=== PATIENT | female | born 1970 | race Caucasian/White ===

== ENCOUNTER 2018-10-18 07:04 | Emergency (ER) | payer SELFPAY ==
[~2018-10-18] VITALS: Ht 167.6 cm; Wt 129.3 kg
[2018-10-18 07:11] VITALS: Ht 167.6 cm; Wt 129.3 kg
[2018-10-18] MEDS ORDERED: [UNRECOGNIZED DRUG - OTHER] (07:13)
[2018-10-18] MEDS ORDERED: METFORMIN HCL500 M1 PO (07:14)
[2018-10-18] MEDS ORDERED: K-DUR20 MEQ PO (07:14)
[2018-10-18] MEDS ORDERED: ACETAMINOPHEN500 M1 PO (08:30)
[2018-10-18] MEDS ORDERED: CYCLOBENZAPRINE10 MG PO (08:30)
[2018-10-18 08:54] VITALS: BP 132/80
== END 2018-10-18 08:52 | disposition home or self-care (01) ==
LOC: D.ER 07:04
DX: S93.502A Unspecified sprain of left great toe, initial encounter (principal); X50.1XXA Overexertion from prolonged static or awkward postures, initial encounter; Y93.89 Activity, other specified; Y92.89 Other specified places as the place of occurrence of the external cause

== ENCOUNTER → 2019-06-13 17:34 | Outpatient (CLI) | payer BC ==
[~2019-06-13 17:34] MED LIST: ACETAMINOPHEN500 M1 PO; CYCLOBENZAPRINE10 MG PO; K-DUR20 MEQ PO; METFORMIN HCL500 M1 PO; [UNRECOGNIZED DRUG - OTHER]
== END | disposition home or self-care (01) ==
LOC: D.LABREF 17:34
PROVIDERS: ATTEND Urology
DX: R31.9 Hematuria, unspecified (principal)

== ENCOUNTER 2019-06-22 06:47 | Day surgery (SDC) | payer BC ==
[~2019-06-22] VITALS: Ht 167.6 cm; Wt 122.0 kg
[~2019-06-22 06:47] MED LIST changes: +NATAZIA 28 TAB1 EACH PO; +VITAMIN D10000 UNI1 PO
[2019-06-22 07:22] LABS: HEMATOCRIT 45.4 % (36.0-48.0); HEMOGLOBIN 15.5 g/dL (12-16); MCH 31.3 pg (26.0-34.0); MCHC 34.1 g/dL (31.0-37.0); MCV 91.7 fL (80.0-100.0); MEAN PLATELET VOLUME 10.1 fL (7.4-10.4); RBC 4.95 10x6/uL (4.00-5.40); RDW 13.4 % (11.5-14.5); WBC 10.4 10x3/uL (4.8-10.8)
[2019-06-22 07:25] LABS: CALC OSMOLALITY 278 mosm/kg (275-300); CARBON DIOXIDE 30.2 mmol/L (21.0-32.0); CHLORIDE - SERUM 102 mmol/L (98-107); CREATININE - SERUM 0.8 mg/dL (0.6-1.3); GLUCOSE 115 mg/dL (74-106); POTASSIUM - SERUM 3.3 mmol/L (3.5-5.1); SODIUM 139 mmol/L (136-145); UREA NITROGEN 13 mg/dL (7-18); eGFR NON AFRICAN AMERICAN 81 mL/min (90-120)
[2019-06-22 08:07] VITALS: Ht 167.6 cm; Wt 122.0 kg
--- NOTE | 2019-06-22 13:09 | NUR ---
1145-AMBULATED TO RESTROOM AND VOIDED WITHOUT COMPLICATIONS. VSS. REPORTS PAIN TO ABD AND VAGINAL AREA /. CONTINUE TO WAIT FOR TRAY FROM DIETARY. CL IN EASY REACH. SPOUSE AT BEDSIDE
--- NOTE | 2019-06-22 13:11 | NUR ---
1225-TOLERATED CRACKERS AND SPRITE. DENIES NAUSEA. VSS. ADMINISTERED NORCO 10/325MG 1 BY MOUTH FOR PAIN.
--- NOTE | 2019-06-22 13:14 | NUR ---
1240-REMOVED IV FROM LEFT ARM WITH CATH INTACT,DISPOSED INTO SHARPS,COVERED SITE WITH GUAZE,SECURED WITH MEDIPORE TAPE. REVIEWED POST OPERATIVE INSTRUCTIONS AND FOLLOW UP APPOINTMENT. VERBALIZED UNDERSTANDING.
--- NOTE | 2019-06-22 13:16 | NUR ---
1245-REPORTS DECREASE IN PAIN TO 5/10. ESCORTED OUT VIA W/C WITH SPOUSE AWAITING TO DRIVE HOME.
--- NOTE | 2019-06-22 13:19 | OP ---
PATIENT NAME: ANCA KHAN MEDICAL RECORD: [id number] :70 LOCATION:D.OPS ADMISSION DATE: SURGEON: GARRETT SALDAÑA MD DATE OF OPERATION: 06/22/2019 SURGEON: Garrett Saldaña MD ANESTHESIA: Gema Green CRNA DIAGNOSIS: Interstitial cystitis. PROCEDURES: Cystoscopy, hydrodistention of the bladder, and intravesical Rimso instillation. FINDINGS: Single ureteral orifices bilaterally with no bladder tumors. Diffusely inflamed bladder. The patient has a [place] grade II rectocele. BLOOD LOSS: Minimal. CLINICAL HISTORY: This is a 48-year-old female with a previous history of interstitial cystitis. Urine culture on 06/13/2019 shows less than 10,000 CFU per mL of gram-positive cocci. I have placed her on doxycycline empirically. She has a CT scan, which shows no kidney stones, diverticulosis without diverticulitis in the colon, and a previous hysterectomy. She is still continuing to complain of flank pain, dysuria, suprapubic pain going down into the vagina and the legs. There was increased frequency and nocturia. She comes now to have the interstitial cystitis, treated with intravesical Rimso and hydrodistention. SHE IS ALLERGIC TO NSAIDS, PENICILLIN, ROCEPHIN, TORADOL, TRAMADOL, CIPRO. She was given Levaquin 500 mg IV marketing operations consultant to the OR. DESCRIPTION OF PROCEDURE: The patient was given IV sedation. She was placed into lithotomy position. Cystoscopy was performed using a 17-Mohawk cystoscope with 30-degree lens. While I was inserting the cystoscope, I noticed that she does have obvious rectocele. The findings from the cystoscopy are as outlined above. The bladder was distended to 600 mL and the fluid was held in for about 2 minutes. The fluid was then drained through the cystoscope sheath and then the scope was removed. We then inserted a red rubber catheter and through the lumen of the red rubber catheter, 50 mL of Rimso solution was instilled into the bladder. The catheter was then removed, leaving the fluid in the bladder. The patient will hold the fluid in for 15 minutes and then void it out. I will see her in followup in 2 weeks' time. TRANSINT:[id number] Voice Confirmation ID: [id number] DOCUMENT ID: [id number] GARRETT SALDAÑA MD at 1319 CC: [id number] DICTATION DATE: 06/22/19 1112 PREP PERSON: 06/22/19 1258 [facility] [place] 06/22/19 [place] [id number] [place] [facility] [place] [address]
== END 2019-06-22 12:45 | disposition home or self-care (01) ==
LOC: D.OPS 06:47
PROVIDERS: Anesthesiology; ATTEND Urology
DX: N30.10 Interstitial cystitis (chronic) without hematuria (principal); N30.00 Acute cystitis without hematuria; E11.9 Type 2 diabetes mellitus without complications; Z79.84 Long term (current) use of oral hypoglycemic drugs; Z87.442 Personal history of urinary calculi

== ENCOUNTER → 2020-06-18 10:50 | Outpatient (CLI) | payer BC ==
[2020-05-09 18:44] VITALS: BMI 44.0
[~2020-06-18 10:50] MED LIST changes: +ADIPEX-P37.5 MG PO; +ALBUTEROL2.5 MG/3 M INH; +AZITHROMYCIN500 MG PO; +DECADRON4 MG PO; +FEXOFENADINE HC60 MG PO; +FLORAJEN3 CAPS460 MG PO; +FLUTICASONE PRO16 GM NASAL; +GLUCOPHAGE500 MG PO; +MELATONIN 3 MG1 TAB PO; +MUCINEX600 MG PO; +NICODERM CQ1 EAC2 TRANSDERM; +SINGULAIR10 MG PO; +SYMBICORT 16010.2 GM INH; +TESSALON PERLE100 MG PO; +TRELEGY ELLIPT1 EACH INH; +VENTOLIN HFA [SP8 GM INH; +VITAMIN C PO; +VITAMIN D-32000 UNI2 PO; +ZINC-220220 MG PO
[2020-06-18 11:42] LABS: SARS-CoV-2 ANTIGEN NEGATIVE- SARS-COV-2 (NEGATIVE)
== END | disposition home or self-care (01) ==
LOC: D.LAB 10:50
PROVIDERS: ATTEND Internal Medicine Pulmonary Disease
DX: Z11.52 Encounter for screening for COVID-19 (principal)

== ENCOUNTER → 2020-06-20 08:18 | Outpatient (CLI) | payer BC ==
[2020-05-09 18:44] VITALS: BMI 44.0
== END | disposition home or self-care (01) ==
LOC: D.RT 06-05 15:00
PROVIDERS: ATTEND Internal Medicine Pulmonary Disease
DX: J44.9 Chronic obstructive pulmonary disease, unspecified (principal)